=== PATIENT | male | born 1980 | race Two or more races ===

== ENCOUNTER 2024-07-12 15:35 | Emergency (ER) | payer SELFPAY ==
[2024-07-12 15:50] VITALS: BP 137/88; PULSE 107; RESP 18; TEMP 38.2; O2SAT 95; BMI 33.3
--- NOTE | 2024-07-12 15:53 | XR_ITS ---
Examination: Duplex scan of the lower extremity, unilateral right complete Date and time of exam: July 12, 2024 1613 hours INDICATIONS: Right thigh calf ankle pain redness and warmth 3 days Technique: Duplex scan of the extremity veins using B-mode/grayscale imaging and Doppler spectral analysis and color flow Attention is directed to internal echogenicity, compression and augmentation involving these veins, color flow assessment, spectral analysis Findings: Major deep venous structures in the extremity demonstrate normal course and caliber. There is no evidence of deep vein thrombosis. Normal color flow and spectral analysis Impression: Negative for DVT..
--- NOTE | 2024-07-12 15:53 | XR_ITS ---
Examination: Tibia-Fibula, right , 2 views Technique: Tibia-fibula AP lateral 2 views Date and time of exam: July 12, 2024 1601 hours INDICATIONS: Redness swelling and pain involving the lower leg beginning 3 days ago. FINDINGS: No cortical bone destruction No foreign body No fracture or dislocation IMPRESSION: No cortical bone destruction or opaque foreign body
--- NOTE | 2024-07-12 15:53 | PC.NURSE ---
sepsis alert called
--- NOTE | 2024-07-12 15:54 | PD.EDRME ---
Rapid Medical Screening Exam RME Arrival date/time: 07/12/24 15:35 44-year-old male presents emergency department complains of erythema right lower extremity Chief Complaint: Skin/Abscess/Foreign Body Time Seen by Provider: 07/12/24 15:48 Vital signs: Vital Signs Temperature 100.7 F H 07/12/24 15:50 Pulse Rate 107 H 07/12/24 15:50 Respiratory Rate 18 07/12/24 15:50 Blood Pressure 137/88 H 07/12/24 15:50 Pulse Oximetry (%) 95 07/12/24 15:50 Oxygen Delivery Method Room Air 07/12/24 15:50
[2024-07-12 16:37] LABS: Lactate (Lactic Acid) 1.9 mMol/L (0.4-2.0)
[2024-07-12 16:38] LABS: Basophils % (Auto) 0 % (0-2.5); Eosinophils % (Auto) 0 % (0-10); Hematocrit 43.9 % (41.0-53.0); Hemoglobin 15.3 g/dL (13.5-16.0); Immature Granulocytes % (Auto) 0 % (0-0); Immature Granulocytes Auto 0.04 Thou/mm3 (0.00-0.00); Lymphocytes # (Auto) 1.8 Thou/mm3 (1.0-4.8); Lymphocytes % (Auto) 16 % (10-50); Mean Corpuscular HGB Conc 34.9 g/dl (31.0-37.0); Mean Corpuscular Hemoglobin 28.2 pg (25.0-35.0); Mean Corpuscular Volume 81 fL (80-100); Monocytes % (Auto) 9 % (0-12); Neutrophils # (Auto) 8.2 Thou/mm3 (1.8-7.7); Neutrophils % (Auto) 74 % (37-80); Nucleated Red Blood Cell % 0 /100 WBC (0); Platelet Count 231 Thou/mm3 (140-440); RDW Standard Deviation 34.3 fL (35.1-43.9); Red Blood Count 5.43 Miln/mm3 (4.50-5.90); White Blood Count 11.1 Thou/mm3 (3.8-10.6)
[2024-07-12 16:47] VITALS: TEMP 38.2
[2024-07-12] MEDS: ACETAMINOPHEN 500 MG TABLET 1000 MG PO (16:47)
[2024-07-12 16:52] LABS: Sed Rate (ESR) 35 mm/hr (0-15)
[2024-07-12 16:56] LABS: Glucose Estimated Average 143 mg/dL (80-131); Hemoglobin A1C 6.6 % Hgb (4.8-6.0)
[2024-07-12 17:54] LABS: Alanine Aminotransferase 58 U/L (10-49); Albumin, Serum 4.8 gm/dL (3.5-5.0); Albumin/Globulin Ratio 1.6 (1.2-2.2); Alkaline Phosphatase 84 U/L (46-116); Anion Gap 10 (7-16); Aspartate Amino Transferase 36 U/L (0-34); BUN/Creatinine Ratio 12 Ratio (12-20); Bilirubin,Total 0.8 mg/dL (0.3-1.2); Blood Urea Nitrogen 12 mg/dL (9-23); C-Reactive Protein 9.5 mg/dL (0.0-0.9); Calcium 9.5 mg/dL (8.3-10.6); Calcium (Corrected) 9.5 mg/dL (8.5-10.1); Carbon Dioxide 25.6 mMol/L (20.0-31.0); Chloride 99 mMol/L (98-107); Estimated Creatinine Clearance 95.5 mL/min (>60); Glucose 132 mg/dL (74-106); Osmolality,Calculated 271 (275-295); Potassium 3.6 mMol/L (3.4-5.1); Procalcitonin 0.15 ng/ml (0.0-0.49); Sodium 135 mMol/L (136-145); Total Protein 7.8 gm/dL (5.7-8.2); eGFR > 60 See Note
--- NOTE | 2024-07-12 18:53 | PD.EDSKIN ---
ED Skin Abcess FB-RME/HPI General Chief complaint: Skin/Abscess/Foreign Body Stated complaint: right upper leg rash x3 Time Seen by Provider: 07/12/24 15:48 Arrival date/time: 07/12/24 15:35 RME / HPI RME / HPI narrative: 44-year-old male patient with no significant medical history, came in for evaluation regarding erythematous rashes noted on the right medial lower leg. This been ongoing for the last 3 days with itchiness. Patient denies any pain denies any swelling denies any shortness of breath denies any difficulty swallowing denies any other complaints. Patient had this rash just for the last several years at least 3 times already. It comes and goes. No medication was taken prior to arrival. Related Data Home Medications ?Medication ?Instructions ?Recorded ?Confirmed Amylase/Lipase/Protease 12,000 * 1 cap PO TIDWM ##90 12/15/14 (CREON 12 *) Previous Rx's ?Medication ?Instructions ?Recorded tramadol 50 mg tablet (Ultram) 50 mg PO Q6HR PRN PAIN #20 tabs 12/15/14 doxycycline monohydrate 100 mg 100 mg PO BID #20 caps 01/07/21 capsule meclizine 25 mg tablet 25 mg PO TID PRN dizziness #20 tabs 01/07/21 meclizine 25 mg tablet 25 mg PO TID PRN dizziness #20 tabs 02/19/23 diphenhydramine HCl 25 mg capsule 50 mg (2 x 25 mg) PO TID PRN 07/12/24 (Benadryl) allergic reaction #30 caps prednisone 50 mg tablet 50 mg PO QDAY #7 tabs 07/12/24 Allergies Allergy/AdvReac Type Severity Reaction Status Date / Time No Known Allergies Allergy Verified 07/12/24 15:36 Review of Systems Review of Systems Narrative Review of Systems: Review of system reviewed and within normal limits except mentioned in HPI ED Exam Narrative Physical exam: VITAL SIGNS: Reviewed. GENERAL APPEARANCE: Alert and interactive, follows commands, no acute distress, HEAD AND FACE: Non-traumatic. ENT: PERRL, pink conjunctivitis, eyelid no trauma, Mucous membrane moist. NECK: Supple, nontender, no nuchal rigidity. CHEST: No tenderness, no crepitus, no paradoxical movement, no retractions. LUNGS: Clear, well ventilated, symmetric, no rales, no wheezing, no ronchi, no stridor, good breath sounds bilaterally. HEART: Regular rate, regular rhythm, no murmur, no gallops. ABDOMEN: Soft, positive bowel sounds, nondistended, no guarding, nontender, no rebound, no masses, RECTAL: Deferred. GENITAL: Deferred. NEUROLOGICAL: Gross motor function intact sensory function intact, Appropriate for age. MUSCULOSKELETAL: low back nontender, full range of motion. EXTREMITIES: Nontender, full range of motion. SKIN: Color pink, dry, erythematous rashes noted on the medial aspect of the thigh and lower leg, no lacerations, no abrasions, no contusions. LYMPHATICS: Deferred. Course Quality Measures none Orders Category Date Time Status US venous doppler LE RT Stat Exams 07/12/24 15:53 Completed XR tibia fibula RT 2V Stat Exams 07/12/24 15:53 Completed A1C [Glycohemoglobin w (eAG)] Stat Lab 07/12/24 15:12 Completed Blood Culture (Lab) Stat Lab 07/12/24 15:07 Received CBC Stat Lab 07/12/24 15:12 Completed CMP [Comprehensive Metabolic Panel] Stat Lab 07/12/24 15:12 Completed CRP [C-Reactive Protein] Stat Lab 07/12/24 15:12 Completed ESR [Sed Rate (ESR)] Stat Lab 07/12/24 15:12 Completed Lactic Acid [Lactate (Lactic Acid)] Stat Lab 07/12/24 15:12 Completed Procalcitonin Stat Lab 07/12/24 15:12 Completed Acetaminophen Tab [Tylenol ES Tab] Med 07/12/24 15:53 Discontinued 1,000 mg PO X1 ONE Vital Signs Vital signs: Vital Signs Temperature 100.7 F H 07/12/24 15:50 Pulse Rate 107 H 07/12/24 15:50 Respiratory Rate 18 07/12/24 15:50 Blood Pressure 137/88 H 07/12/24 15:50 Pulse Oximetry (%) 95 07/12/24 15:50 Oxygen Delivery Method Room Air 07/12/24 15:50 Skin / Abscess / Foreign Body MDM Narrative MDM Narrative:: 44-year-old male patient with no significant medical history, came in for evaluation regarding erythematous rashes noted on the right medial lower leg. This been ongoing for the last 3 days with itchiness. Patient denies any pain denies any swelling denies any shortness of breath denies any difficulty swallowing denies any other complaints. Patient had this rash just for the last several years at least 3 times already. It comes and goes. No medication was taken prior to arrival. Patient's workup today all came back normal ultrasound the leg negative for DVT x-ray of the leg also negative for acute pathology. Results discussed with the patient. Patient is probably having allergic reaction could be contact dermatitis. Patient will be sent home on Benadryl and prednisone. Patient appears nontoxic and hemodynamically stable. Patient discharged home and instructed to follow-up with primary care provider in 24 to 48 hours. Instructed to return to the emergency department immediately if worsening of symptoms Patient data External records reviewed:: None Clinical information provided by:: patient and family Social determinants that could affect healthcare access:: none Patient has the following chronic illnesses:: None How is presenting disease/condition affected by chronic disease/condition?: no chronic disease Evaluation data The following diagnostics were reviewed and interpreted by me:: lab results and radiology exam(s) Lab and/or radiology exams considered but not ordered:: None Interpretation Summary: See results in MDM Medications / Prescriptions Medications or Prescriptions considered but not ordered:: None Medication administrations:: Medication Administration History Discontinued Medications Acetaminophen (Acetaminophen 500 Mg Tablet) 1,000 mg PO X1 ONE Stop: 07/12/24 15:54 Last Admin: 07/12/24 16:47 Dose: 1,000 mg Documented By: GM Tylenol Benadryl and prednisone Consultations Consultation(s) initiated? (list below): No Diagnosis Skin/Abscess Differential Diagnosis: abscess of skin or subcutaneous tissue, viral exanthem and cellulitis (Rash) Most likely diagnosis given after review of the tests above:: Rash Admission Indicated Admission indicated?: not indicated Admission Request Was there a request for admission?: No Disposition Plan Disposition Plan: Discharge Discharge Attestation Discharge Attestation: The patient and all family members were given an opportunity to ask questions and understood the discharge instructions. Discharge instructions specifically effects, indications for sooner follow up or return to the emergency department, and the expected course of current diagnosis. Patient condition: Stable Discharge Plan Plan Patient Disposition: HOME (Self Care) Prescriptions/Referrals Prescriptions/Med Rec: New diphenhydramine HCl [Benadryl] 25 mg capsule 50 mg PO TID PRN (Reason: allergic reaction) Qty: 30 0RF prednisone 50 mg tablet 50 mg PO QDAY Qty: 7 0RF No Action Amylase/Lipase/Protease 12,000 * (CREON 12 *) 1 EACH CAPSULE.DR Ferrara cap PO TIDWM Qty: 90 tramadol [Ultram] 50 MG tablet 50 mg PO Q6HR PRN (Reason: PAIN) Qty: 20 0RF Rx Instructions: FOR PAIN, NOT TO EXCEED 8 TABS IN 24 HRS doxycycline monohydrate 100 mg capsule 100 mg PO BID Qty: 20 0RF meclizine 25 mg tablet 25 mg PO TID PRN (Reason: dizziness) Qty: 20 0RF meclizine 25 mg tablet 25 mg PO TID PRN (Reason: dizziness) Qty: 20 0RF Referrals: Bill Wilson MD [Primary Care Provider] - In 1 week Problem List Clinical Impression: Rash Patient/Caregiver Discharge Instructions Discharge Activity: activity as tolerated Education Materials: Allergy Overview Additional Instructions: Thank you for the opportunity for serving you today. You are stable for discharged . You are advised to: Follow-up with your PCP in 1 to 2 days Return to ED for worsening of symptoms Increase oral fluids Take medication as prescribed Print Language: Beninese Stand Alone Forms: Anastasiya Award Info., Patient Portal Info Letter RAVI/MEGHANA Supervising Physician OKSANA Supervising Physician: MD erinn
[2024-07-12 19:12] VITALS: BP 130/77; PULSE 78; RESP 18; TEMP 37.1; O2SAT 98
[2024-07-12] MEDS: predniSONE 20 MG TABLET 60 MG PO (20:10)
[2024-07-12] MEDS: DiphenhydrAMINE 25 MG CAPSULE 50 MG PO (20:10)
== END 2024-07-12 20:14 | disposition home or self-care (01) ==
PROVIDERS: Nurse Practitioner Primary Care; Emergency Provider Emergency Medicine; PCP Family Medicine
DX: R21 Rash and other nonspecific skin eruption (principal)
CPT/HCPCS: 36415; 73590; 80053; 83036; 83605; 84145; 85025; 85652; 86140; 87040; 93971; 99284; J7512; A9270

== ENCOUNTER 2024-09-12 15:12 | Emergency (ER) | payer SELFPAY ==
[2024-09-12 15:13] VITALS: BMI 36.7
[2024-09-12 15:50] VITALS: BP 136/83; PULSE 78; RESP 18; TEMP 37.1; O2SAT 99
--- NOTE | 2024-09-12 15:53 | PD.EDRME ---
Rapid Medical Screening Exam RME Arrival date/time: 09/12/24 15:12 Chief Complaint: General Adult/Misc Complain Time Seen by Provider: 09/12/24 15:35 Vital signs: Vital Signs Temperature 98.8 F 09/12/24 15:50 Pulse Rate 78 09/12/24 15:50 Respiratory Rate 18 09/12/24 15:50 Blood Pressure 136/83 H 09/12/24 15:50 Pulse Oximetry (%) 99 09/12/24 15:50 Oxygen Delivery Method Room Air 09/12/24 15:50 RME Narrative: RLE pain/swelling and redness traveling up right leg x 4 days. Referred by PCP to r/o DVT
--- NOTE | 2024-09-12 15:54 | XR_ITS ---
Examination: Duplex scan of the lower extremity, unilateral right Date and time of exam: September 12, 2024 1612 hours INDICATIONS: Right leg swelling and pain beginning 4 days ago Technique: Duplex scan of the extremity veins using B-mode/grayscale imaging and Doppler spectral analysis and color flow Attention is directed to internal echogenicity, compression and augmentation involving these veins, color flow assessment, spectral analysis Findings: Major deep venous structures in the extremity demonstrate normal course and caliber. There is no evidence of deep vein thrombosis. Normal color flow and spectral analysis Impression: Negative for DVT..
[2024-09-12 16:29] LABS: Lactate (Lactic Acid) 1.4 mMol/L (0.4-2.0)
[2024-09-12 16:31] LABS: Basophils # (Auto) 0.1 Thou/mm3 (0.0-0.2); Basophils % (Auto) 1 % (0-2.5); Eosinophils # (Auto) 0.2 Thou/mm3 (0.0-0.5); Eosinophils % (Auto) 2 % (0-10); Hematocrit 42.9 % (41.0-53.0); Hemoglobin 14.6 g/dL (13.5-16.0); Immature Granulocytes % (Auto) 0 % (0-0); Immature Granulocytes Auto 0.03 Thou/mm3 (0.00-0.00); Lymphocytes # (Auto) 2.4 Thou/mm3 (1.0-4.8); Lymphocytes % (Auto) 33 % (10-50); Mean Corpuscular Hemoglobin 27.9 pg (25.0-35.0); Mean Corpuscular Volume 82 fL (80-100); Monocytes # (Auto) 0.7 Thou/mm3 (0.0-0.8); Monocytes % (Auto) 9 % (0-12); Neutrophils # (Auto) 4.1 Thou/mm3 (1.8-7.7); Neutrophils % (Auto) 55 % (37-80); Nucleated Red Blood Cell % 0 /100 WBC (0); Platelet Count 289 Thou/mm3 (140-440); RDW Standard Deviation 35.1 fL (35.1-43.9); Red Blood Count 5.23 Miln/mm3 (4.50-5.90); White Blood Count 7.4 Thou/mm3 (3.8-10.6)
[2024-09-12 17:05] LABS: Sed Rate (ESR) 28 mm/hr (0-15)
[2024-09-12 19:21] LABS: Alanine Aminotransferase 36 U/L (10-49); Albumin, Serum 4.6 gm/dL (3.5-5.0); Albumin/Globulin Ratio 1.6 (1.2-2.2); Alkaline Phosphatase 87 U/L (46-116); Anion Gap 10 (7-16); Aspartate Amino Transferase 20 U/L (0-34); BUN/Creatinine Ratio 18 Ratio (12-20); Bilirubin,Total 0.4 mg/dL (0.3-1.2); Blood Urea Nitrogen 18 mg/dL (9-23); Calcium 10.3 mg/dL (8.3-10.6); Calcium (Corrected) 10.3 mg/dL (8.5-10.1); Carbon Dioxide 26.1 mMol/L (20.0-31.0); Chloride 105 mMol/L (98-107); Estimated Creatinine Clearance 97.1 mL/min (>60); Globulin 2.8 gm/dL (2.3-3.5); Glucose 108 mg/dL (74-106); Osmolality,Calculated 284 (275-295); Potassium 3.9 mMol/L (3.4-5.1); Procalcitonin 0.08 ng/ml (0.0-0.49); Sodium 141 mMol/L (136-145); Total Protein 7.4 gm/dL (5.7-8.2); eGFR > 60 See Note
[2024-09-12 19:33] LABS: C-Reactive Protein 2.7 mg/dL (0.0-0.9)
--- NOTE | 2024-09-12 19:43 | PD.EDSKIN ---
ED Skin Abcess FB-RME/HPI General Chief complaint: General Adult/Misc Complain Stated complaint: R/O BLOOD CLOT AND IV ABX RIGHT LEG Time Seen by Provider: 09/12/24 15:35 Arrival date/time: 09/12/24 15:12 RME / HPI RME / HPI narrative: RLE pain/swelling and redness traveling up right leg x 4 days. Referred by PCP to r/o DVT This section includes all my notes and documentations, including HPI, PE, and ED course. Marvin Das MD HPI: 44-year-old male here with several days of enlarging red area in right upper leg. No fever or chills. No chills or bodyaches. No other complaints. ROS: All negative except as documented in HPI. Physical Exam: General: Alert and oriented. No acute distress when remaining still. Eyes: Conjunctivae and lids clear. ENT: No nasal congestion. Neck: Supple. Heart: RRR. Lungs: No respiratory distress. Good air movement. No rhonchi, wheezing, rales. Abdomen: Soft and nontender. Back: No CVA tenderness. Skin: Warm and dry. In the inner aspect of the right upper leg, there is a football sized area of erythema and edema and calor and soft tissue tenderness. Legs: No clubbing, cyanosis, edema. Neuro: Alert and oriented X 3. I reviewed all diagnostic test results. My review of the right leg US report is no DVT. Blood tests unremarkable. At this point, diagnoses include right leg cellulitis. Recommended a trial of outpatient treatment. Based on my best medical judgment, made decision no further evaluation or treatment indicated at this time. Patient understands and agrees to the discharge instructions customized and printed, see below. Discharge Instructions from Dr. Das printed for you: 1. After evaluation, you have right upper leg cellulitis. 2. Augmentin to kill the germs causing the infection. Prednisone to decrease inflammation. 3. For rest needed to heal, elevate above waist level for 3 days as much as possible. 4. See a private doctor next week if not completely better. 5. Seek immediate medical care with fever, spreading redness despite taking Augmentin for 24 hours, or with any concerns. Marvin Das MD Related Data Home Medications ?Medication ?Instructions ?Recorded ?Confirmed Amylase/Lipase/Protease 12,000 * 1 cap PO TIDWM ##90 12/15/14 (CREON 12 *) Previous Rx's ?Medication ?Instructions ?Recorded tramadol 50 mg tablet (Ultram) 50 mg PO Q6HR PRN PAIN #20 tabs 12/15/14 doxycycline monohydrate 100 mg 100 mg PO BID #20 caps 01/07/21 capsule meclizine 25 mg tablet 25 mg PO TID PRN dizziness #20 tabs 01/07/21 meclizine 25 mg tablet 25 mg PO TID PRN dizziness #20 tabs 02/19/23 diphenhydramine HCl 25 mg capsule 50 mg (2 x 25 mg) PO TID PRN 07/12/24 (Benadryl) allergic reaction #30 caps prednisone 50 mg tablet 50 mg PO QDAY #7 tabs 07/12/24 amoxicillin 875 mg-potassium 1 tab PO BID #20 tabs 09/12/24 clavulanate 125 mg tablet prednisone 50 mg tablet 50 mg PO QDAY #3 tabs 09/12/24 Allergies Allergy/AdvReac Type Severity Reaction Status Date / Time No Known Allergies Allergy Verified 09/12/24 15:14 Course Quality Measures none Orders Category Date Time Status US venous duplex LE RT Stat Exams 09/12/24 15:54 Completed Blood Culture (Lab) Stat Lab 09/12/24 16:00 Received CBC Stat Lab 09/12/24 16:00 Completed CMP [Comprehensive Metabolic Panel] Stat Lab 09/12/24 16:00 Completed CRP [C-Reactive Protein] Stat Lab 09/12/24 16:00 Completed ESR [Sed Rate (ESR)] Stat Lab 09/12/24 16:00 Completed Lactate (Lactic Acid) Stat Lab 09/12/24 16:00 Completed Procalcitonin Stat Lab 09/12/24 16:00 Completed Vital Signs Vital signs: Vital Signs Temperature 98.8 F 09/12/24 15:50 Pulse Rate 78 09/12/24 15:50 Respiratory Rate 18 09/12/24 15:50 Blood Pressure 136/83 H 09/12/24 15:50 Pulse Oximetry (%) 99 09/12/24 15:50 Oxygen Delivery Method Room Air 09/12/24 15:50 Skin / Abscess / Foreign Body Patient data External records reviewed:: [facility] previous records Clinical information provided by:: patient Social determinants that could affect healthcare access:: none Patient has the following chronic illnesses:: None How is presenting disease/condition affected by chronic disease/condition?: no chronic disease Evaluation data The following diagnostics were reviewed and interpreted by me:: lab results and radiology exam(s) Lab and/or radiology exams considered but not ordered:: None Interpretation Summary: Cellulitis Medications / Prescriptions Medications or Prescriptions considered but not ordered:: None Medication administrations:: None Consultations Consultation(s) initiated? (list below): No Diagnosis Skin/Abscess Differential Diagnosis: abscess of skin or subcutaneous tissue, viral exanthem, urticaria, allergic reaction to drug, cellulitis, insect bites, impetigo, contact dermatitis and other (DVT) Most likely diagnosis given after review of the tests above:: Cellulitis Admission Indicated Admission indicated?: not indicated Explain why admission is indicated or not indicated:: There was no indication for admission. Admission Request Was there a request for admission?: No Disposition Plan Disposition Plan: Discharge Discharge Attestation Discharge Attestation: The patient and all family members were given an opportunity to ask questions and understood the discharge instructions. Discharge instructions specifically effects, indications for sooner follow up or return to the emergency department, and the expected course of current diagnosis. Patient condition: Stable Discharge Plan Plan Patient Disposition: HOME (Self Care) Prescriptions/Referrals Prescriptions/Med Rec: New prednisone 50 mg tablet 50 mg PO QDAY Qty: 3 0RF amoxicillin-pot clavulanate 875-125 mg tablet 1 tab PO BID Qty: 20 0RF No Action Amylase/Lipase/Protease 12,000 * (CREON 12 *) 1 EACH CAPSULE.DR 1 cap PO TIDWM Qty: 90 tramadol [Ultram] 50 MG tablet 50 mg PO Q6HR PRN (Reason: PAIN) Qty: 20 0RF Rx Instructions: FOR PAIN, NOT TO EXCEED 8 TABS IN 24 HRS doxycycline monohydrate 100 mg capsule 100 mg PO BID Qty: 20 0RF meclizine 25 mg tablet 25 mg PO TID PRN (Reason: dizziness) Qty: 20 0RF meclizine 25 mg tablet 25 mg PO TID PRN (Reason: dizziness) Qty: 20 0RF diphenhydramine HCl [Benadryl] 25 mg capsule 50 mg PO TID PRN (Reason: allergic reaction) Qty: 30 0RF prednisone 50 mg tablet 50 mg PO QDAY Qty: 7 0RF Referrals: No Primary/Family,Physician [Primary Care Provider] - In 1 week Problem List Clinical Impression: Cellulitis Patient/Caregiver Discharge Instructions Discharge Activity: activity as tolerated Education Materials: ED Cellulitis Additional Instructions: Discharge Instructions from Dr. Das printed for you: 1. After evaluation, you have right upper leg cellulitis. 2. Augmentin to kill the germs causing the infection. Prednisone to decrease inflammation. 3. For rest needed to heal, elevate above waist level for 3 days as much as possible. 4. See a private doctor next week if not completely better. 5. Seek immediate medical care with fever, spreading redness despite taking Augmentin for 24 hours, or with any concerns. Print Language: Mongolian Stand Alone Forms: Anastasiya Award Info., Patient Portal Info Letter
== END 2024-09-12 19:55 | disposition home or self-care (01) ==
PROVIDERS: Physician Assistant; Emergency Provider Emergency Medicine
DX: L03.115 Cellulitis of right lower limb (principal)
CPT/HCPCS: 36415; 80053; 83605; 84145; 85025; 85652; 86140; 87040; 93971; 99284

== ENCOUNTER 2025-06-04 15:30 | Emergency (ER) | payer MEDICAID, SELFPAY ==
[2025-06-04 15:38] VITALS: BP 145/97; PULSE 100; RESP 20; TEMP 37.1; O2SAT 96
[2025-06-04 16:35] LABS: Collection Type, Urine Clean Catch
--- NOTE | 2025-06-04 16:46 | EDNOTE_ITS ---
<Statement entered by Shawnee Garcia MD - 06/05/25 17:47> As co-signing physician, I was present and available for consult prn. I concur with the plan and care as documented by the midlevel provider. ED Male Genitalurinary RME/HPI General Chief complaint: Urogenital-Male Stated complaint: FORESKIN WON'T RETRACT Time Seen by Provider: 06/04/25 15:40 Source: patient Arrival date/time: 06/04/25 15:30 45-year-old male with no known medical history presents to the emergency room with a chief complaint of his foreskin not retracting x 3 days Mode of arrival: ambulatory Limitations: no limitations Related Data Home Medications ?Medication ?Instructions ?Recorded ?Confirmed Amylase/Lipase/Protease 12,000 * 1 cap PO TIDWM ##90 0 12/15/14 (CREON 12 *) Previous Rx's ?Medication ?Instructions ?Recorded tramadol 50 mg tablet (Ultram) 50 mg PO Q6HR PRN PAIN #20 tabs 12/15/14 doxycycline monohydrate 100 mg 100 mg PO BID #20 caps 01/07/21 capsule meclizine 25 mg tablet 25 mg PO TID PRN dizziness # 20 tabs 01/07/21 meclizine 25 mg tablet 25 mg PO TID PRN dizziness # 20 tabs 02/19/23 diphenhydramine HCl 25 mg capsule 50 mg (2 x 25 mg) PO TID PRN 07/12/24 (Benadryl) allergic reaction #30 caps prednisone 50 mg tablet 50 mg PO QDAY #7 tabs amoxicillin 875 mg-potassium 1 tab PO BID #20 tabs clavulanate 125 mg tablet prednisone 50 mg tablet 50 mg PO QDAY #3 tabs clotrimazole 1 % topical cream 1 applic topical BID 2 weeks #15 06/04/25 grams Allergies Allergy/AdvReac Type Severity Reaction Status Date / Time No Known Allergies Allergy Verified 09/12/24 15:14 Review of Systems Review of Systems Systems Reviewed: All systems reviewed, normal except as documented Constitutional Constitutional: Reports system reviewed and no additional complaints, except as documented, Denies fatigue, Denies fever(s), Denies headache(s) and Denies weakness Eyes Eyes: Reports system reviewed and no additional complaints, except as documented, Denies blurry vision and Denies change in vision ENT Ears, Nose, Mouth, and Throat: Reports system reviewed and no additional complaints, except as documented, Denies otalgia, Denies headache(s), Denies nasal congestion, Denies throat swelling and Denies vertigo Cardiovascular Cardiovascular: Reports system reviewed and no additional complaints, except as documented, Denies chest pain, Denies dyspnea and Denies dyspnea on exertion Respiratory Respiratory: Reports system reviewed and no additional complaints, except as documented, Denies chest congestion, Denies cough, Denies dyspnea, Denies dyspnea on exertion and Denies wheezing Gastrointestinal Gastrointestinal: Reports system reviewed and no additional complaints, except as documented, Denies abdominal pain, Denies cramping, Denies nausea and Denies vomiting Genitourinary Genitourinary: Reports system reviewed and no additional complaints, except as documented, Denies dysuria and Denies hematuria Musculoskeletal Musculoskeletal: Reports system reviewed and no additional complaints, except as documented and Denies back pain Integumentary/Breasts Skin/Breast: Reports system reviewed and no additional complaints, except as documented and Denies wounds Neurologic Neurologic: Reports system reviewed and no additional complaints, except as documented, Denies confusion, Denies headache(s), Denies lack of coordination, Denies vertigo and Denies weakness Psychiatric Psychiatric: Reports system reviewed and no additional complaints, except as documented, Denies anxiety, Denies confusion, Denies depression, Denies paranoia, Denies suicidal ideation and Denies tactile hallucinations Endocrine Endocrine: Reports system reviewed and no additional complaints, except as documented and Denies fatigue Hematologic/Lymphatic Hematologic/Lymphatic: Reports system reviewed and no additional complaints, except as documented and Denies lymphadenopathy Allergic/Immunologic Allergic/Immunologic: Reports system reviewed and no additional complaints, except as documented, Denies throat swelling, Denies urticaria and Denies wheezing Past Medical History Past Medical History NEUROLOGIC: Negative Neurological Disorders CARDIAC: Negative Cardiac Disorders Social History SMOKING STATUS: Never smoker ED Exam General Limitations: Present no limitations General appearance: Present alert and in no apparent distress Head Head exam: Present atraumatic Eye Eye exam: Present normal appearance, PERRL and EOMI ENT ENT exam: Present normal exam, normal oropharynx and mucous membranes moist Neck Neck exam: Present normal inspection, full ROM and trachea midline Chest Chest inspection: Present normal inspection and symmetric chest wall rise Respiratory Respiratory exam: Present normal lung sounds bilaterally Cardiovascular Cardiovascular exam: Present regular rate, normal rhythm and normal heart sounds Abdominal Exam Abdominal exam: Present soft and normal bowel sounds Extremities Exam Extremities exam: Present normal inspection and full ROM Back Exam Back exam: Present normal inspection and full ROM Neurological Exam Neurological exam: Present alert, oriented X3 and CN II-XII intact Psychiatric Psychiatric exam: Present normal affect and normal mood Skin Skin exam: Present warm, dry, intact and normal color Course Quality Measures none Orders Category Date Time Status UA, C/S IF [Urinalysis, C/S if Indicated] Stat Lab 06/04/25 16:20 Completed Fluconazole [Diflucan] Med 06/04/25 17:11 Discontinued 150 mg PO X1 ONE Vital Signs Vital signs: Vital Signs Temperature 98.8 F 06/04/25 15:38 Pulse Rate 100 06/04/25 15:38 Respiratory Rate 20 06/04/25 15:38 Blood Pressure 145/97 H 06/04/25 15:38 Pulse Oximetry (%) 96 06/04/25 15:38 Oxygen Delivery Method Room Air 06/04/25 15:38 O2 saturation 96% within normal limits Urogenital - Male MDM Narrative MDM Narrative:: 45-year-old male with no known medical history presents to the emergency room with a chief complaint of his foreskin not retracting x 3 days Patient is hemodynamically stable and in no apparent distress Physical examination shows an erythemic itchy sore head of the penis. There is some clear discharge around the head but it is not coming out of the urethra. The findings are consistent with balanitis as this appears fungal. Medication was given to the patient urinalysis was within normal limits Patient was discharged and educated to follow-up with primary care provider in the next 24 to 48 hours and return to the emergency room for any evidence of worsening signs or symptoms Patient data External records reviewed:: [facility] previous records Clinical information provided by:: patient Social determinants that could affect healthcare access:: none Patient has the following chronic illnesses:: No chronic illness How is presenting disease/condition affected by chronic disease/condition?: no chronic disease Evaluation data The following diagnostics were reviewed and interpreted by me:: lab results and radiology exam(s) Lab and/or radiology exams considered but not ordered:: Labs and radiology exams considered and ordered Interpretation Summary: N/A Medications / Prescriptions Medications or Prescriptions considered but not ordered:: medication given Medication administrations:: Medication Administration History Discontinued Medications Fluconazole (Fluconazole 150 Mg Tablet) 150 mg PO X1 ONE Stop: 06/04/25 17:12 Last Admin: 06/04/25 17:36 Dose: 150 mg Documented By: MI medication given Consultations Consultation(s) initiated? (list below): No Diagnosis Urogenital Male Differential Diagnosis: urinary tract infection and other (Balanitis) Most likely diagnosis given after review of the tests above:: Balanitis Admission Indicated Admission indicated?: not indicated Admission Request Was there a request for admission?: No Disposition Plan Disposition Plan: Discharge Discharge Attestation Discharge Attestation: The patient and all family members were given an opportunity to ask questions and understood the discharge instructions. Discharge instructions specifically effects, indications for sooner follow up or return to the emergency department, and the expected course of current diagnosis. Patient condition: Stable Discharge Plan Plan Patient Disposition: HOME (Self Care) Discharge Disposition comment: Stable Prescriptions/Referrals Prescriptions/Med Rec: New clotrimazole 1 % cream 1 applic topical BID 14 Days Qty: 15 0RF No Action Amylase/Lipase/Protease 12,000 * (CREON 12 *) 1 EACH CAPSULE. 1 cap PO TIDWM Qty: 90 tramadol [Ultram] 50 MG tablet 50 mg PO Q6HR PRN (Reason: PAIN) Qty: 20 0RF Rx Instructions: FOR PAIN, NOT TO EXCEED 8 TABS IN 24 HRS doxycycline monohydrate 100 mg capsule 100 mg PO BID Qty: 20 0RF meclizine 25 mg tablet 25 mg PO TID PRN (Reason: dizziness) Qty: 20 0RF meclizine 25 mg tablet 25 mg PO TID PRN (Reason: dizziness) Qty: 20 0RF diphenhydramine HCl [Benadryl] 25 mg capsule 50 mg PO TID PRN (Reason: allergic reaction) Qty: 30 0RF prednisone 50 mg tablet 50 mg PO QDAY Qty: 7 0RF prednisone 50 mg tablet 50 mg PO QDAY Qty: 3 0RF amoxicillin-pot clavulanate 875-125 mg tablet 1 tab PO BID Qty: 20 0RF Referrals: Bill Wilson MD [Primary Care Provider, Family Practice] - In 1 week Problem List Clinical Impression: Balanitis Patient/Caregiver Discharge Instructions Education Materials: ED Balanitis Additional Instructions: Please follow-up with your primary care provider in the next 24 to 48 hours Antibiotics are sent to your pharmacy please pick them up and take them as indicated For any evidence of worsening signs or symptoms return to emergency room immediately Print Language: [place] Stand Alone Forms: Anastasiya Award Info., Work/School Release, Patient Portal Info Letter
[2025-06-04 17:18] LABS: Bilirubin,Urine Negative (Negative); Blood,Urine Negative (Negative); Clarity,Urine Clear (Clear/Hazy); Color,Urine Lt-Yellow (Lt Yel-Yel); Culture Indicated,Urine Not Indicated; Glucose, Urine 4+ (Negative); Ketones,Urine Trace (Negative); Leukocyte Esterase,Urine Negative (Negative); Nitrite,Urine Negative (Negative); PH,Urine 6.5 (5.0-7.0); Protein,Urine Negative (Neg - Trace); RBC,Urine < 1 /hpf (0-3); Specific Gravity,Urine 1.037 (1.001-1.035); Squamous Epithelial Cell,Urine 1 /hpf (0-5); Urobilinogen,Urine Negative mg/dL (0.0-1.0); WBC,Urine < 1 /hpf (0-5)
[2025-06-04] MEDS: FLUCONAZOLE 150 MG TABLET PO (17:36)
== END 2025-06-04 19:30 | disposition home or self-care (01) ==
PROVIDERS: Nurse Practitioner Family; Emergency Provider Emergency Medicine; PCP Family Medicine
DX: N48.1 Balanitis (principal)
CPT/HCPCS: 81001; 99282; A9270